=== PATIENT | male | born 1980 | race Caucasian/White ===

== ENCOUNTER 2017-02-08 08:13 | Emergency (ER) | payer OTHER ==
[~2017-02-08] VITALS: Ht 188 cm; Wt 105.9 kg
[2017-02-08 09:43] LABS: INFLUENZA A VIRAL ANTIGEN NEGATIVE; INFLUENZA B VIRAL ANTIGEN NEGATIVE
[2017-02-08] MEDS ORDERED: LEVAQUIN750 MG PO (10:54)
[2017-02-08] MEDS ORDERED: PROVENTIL HFA6.7 GM IH (10:54)
[2017-02-08 11:08] VITALS: BP 139/83
== END 2017-02-08 11:08 | disposition home or self-care (01) ==
LOC: EME 08:13
PROVIDERS: Emergency Medicine
DX: J18.9 Pneumonia, unspecified organism (principal)
CPT/HCPCS: 71020; 87502; 94640; 99281; 99283